=== PATIENT | male | born 1945 | race Caucasian/White ===

== ENCOUNTER 2016-09-30 10:56 | Day surgery (SDC) | payer MEDICARE ==
[~2016-09-30] VITALS: Ht 182.9 cm; Wt 67.2 kg
[2016-09-30] VITALS (8 sets, daily range): BP systolic 100–152; BP diastolic 59–72; PULSE 64–79; RESP 12–18; O2SAT 97–100
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
[~2016-09-30 10:56] MED LIST: Dexamethasone 4 mg/mL Inj IVPUSH PRN; EPHEDrine Sulfate 50 mg/mL Inj IVPUSH PRN; Lactated Ringer's 1,000 ML IV SCH; Lactated Ringer's 500 ML IV PRN; Levofloxacin 500 mg/100 mL D5W IV ONE; MULT-1018 PO; MetoCLOpramide 5 mg/mL 2 mL Inj IVPUSH PRN; OMEP20TA24 PO; Ondansetron 2 mg/mL 2 mL Inj IVPUSH PRN; Phenylephrine 10,000 mCg/mL Inj IVPUSH PRN; TADA2.5T PO; fentaNYL-PF 50 mCg/mL 2 mL Inj IVPUSH PRN
[2016-09-30] MEDS ORDERED: Ketamine 10 mg/mL 20 mL Inj ONE (10:57)
[2016-09-30] MEDS ORDERED: Dexamethasone 4 mg/mL Inj ONE (10:57)
[2016-09-30] MEDS ORDERED: Ondansetron 2 mg/mL 2 mL Inj ONE (10:57)
[2016-09-30] MEDS ORDERED: Propofol 10,000 mCg/mL 20 mL Inj ONE (10:57)
[2016-09-30] MEDS: Lactated Ringer's 1,000 ML IV SCH ×2 (11:06→15:19)
[2016-09-30] MEDS ORDERED: levoFLOXacin 500 mg/100 mL D5W Premix IV ONE (11:08)
--- NOTE | 2016-09-30 18:33 | OP ---
[address] [address] OPERATIVE REPORT PATIENT: BRADLY CONTRERAS : 1945 MR#: [id number] ADMIT: 09/30/2016 JOB ID: [id number] DATE OF SURGERY: 09/30/2016 PREOPERATIVE DIAGNOSIS(ES): Bladder tumor. POSTOPERATIVE DIAGNOSIS(ES): Bladder tumor. PROCEDURE PERFORMED: 1. Digital rectal exam under anesthesia. 2. Cystoscopy and transurethral resection of bladder tumor (2.5). SURGEON: Rosa Elena Garcia MD PEAR PICKER: None. FINDINGS: 1. Normal digital rectal exam. Prostate approximately at 25-30 g, smooth without nodules. Mobile bladder. 2. Bilateral orthotopic ureteral orifices. 3. 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 ANESTHESIA: General. ESTIMATED BLOOD LOSS: Less than 5 mL. DRAINS: None. SPECIMENS: 1. Bladder tumor. 2. Base of bladder tumor. COMPLICATIONS: None. CONDITION: Stable. INDICATIONS FOR PROCEDURE: The patient is a 70-year-old gentleman with a bladder tumor. He now presents for the aforementioned procedure. DESCRIPTION OF PROCEDURE: After informed consent was obtained, the patient was taken to the operating room. A time-out was performed identifying correct patient, surgical site, and procedure. General anesthesia was smoothly induced. He was given intravenous antibiotics just prior to the start of the procedure. He was placed in the lithotomy position, and all pressure points were identified and appropriately padded. A rectal exam was performed under anesthesia. The findings were as aforementioned. His genitals were then prepped and draped in usual sterile fashion. A 26-Honduran resectoscope was then placed inside the urethra and advanced into the bladder. The bladder was drained. Both ureteral orifices were seen in orthotopic position. The bladder was systematically inspected with both 30 and 70 degree lenses. There was a papillary tumor that was approximately 2.5 cm or just a bit larger. It had a small stalk. It was resected in piecemeal fashion with a 24-Honduran resecting loop. This was passed off the table as bladder tumor. Next, cold cup biopsy forceps were then used to sample the bladder tumor base. This was passed off the table as base of bladder tumor. The loop was then used to cauterize the base of the tumor, as well as cauterize the normal-appearing mucosa approximately 1 cm around that base of bladder tumor. The bladder was then drained. The resectoscope was then removed from the patient's body. The patient was then reversed from general anesthesia and taken to PACU in stable condition. RACH
--- NOTE | 2016-10-01 07:12 | PCM.ANEP1 ---
Post Anesthesia PACU Phase 1 Assessment Anesthetic Administered: GA Level of Alertness: Sleepy, easy to arouse MOORE's with Equal Strength: Yes Pain: No Nausea or Vomiting: No CV Function & Hydration Stable: Yes Airway Device: natural Oxygen Delivery: Simple Mask Lungs: Clear to Auscultation Dermatome Level: Full Sensation PACU Phase 2 Assessment Complications: No Follow up Care: No Patient Instructions Provided: N/A Jovany Hidalgo MD Oct 01, 2016 07:12
== END 2016-09-30 23:59 | disposition home or self-care (01) ==
LOC: SAS 10:56
PROVIDERS: ATTEND Urology
DX: C67.9 Malignant neoplasm of bladder, unspecified (principal); K21.9 Gastro-esophageal reflux disease without esophagitis; F32.9 Major depressive disorder, single episode, unspecified; Z87.891 Personal history of nicotine dependence
CPT/HCPCS: 52235; J1100; J2405; J7120